=== PATIENT | female | born 1970 | race Hispanic/Latino ===

== ENCOUNTER 2019-11-28 23:23 | Emergency (ER) | payer BC ==
[2019-11-29] MEDS ORDERED: IBUPROFEN 400 MG TAB ONE (00:04)
[2019-11-29 00:40] VITALS: BP 132/85; TEMP 97.9; O2SAT 100
--- NOTE | 2019-11-29 11:16 | RAD REPORT ---
EXAM DESCRIPTION: Chest Single View CLINICAL HISTORY: PICC line insertion. COMPARISON: None. TECHNIQUE: AP Chest. FINDINGS: The cardiac size is mildly enlarged. There is pulmonary vascular congestion. There is left lower lobe consolidation with a small left pleural effusion. There is no edema or pneumothorax. Endotracheal tube is at the level of the clavicles. Feeding tube extends into the left abdomen. Right subclavian PICC line is visualized to the cavoatrial junction. Unremarkable soft tissues and bones. IMPRESSION: 1. Right subclavian PICC line placed without complication. 2. Cardiomegaly with pulmonary vascular congestion. Left lower lobe consolidation with a small left p leural effusion. Electronically signed by: Ana Paula Lomax DO 11/29/2019 1:33 AM CDT Due to temporary technical issues with the PACS/Fluency reporting system, reports are being signed by the in house radiologist as a courtesy to ensure prompt reporting. The interpreting radiologist is f ully responsible for the content of the report.
--- NOTE | 2019-12-04 13:58 | ER ---
Nurse's Notes [facility] Name: Lucy Smiley Age: 48 yrs Sex: Female : 1970 Arrival Date: 11/28/2019 Time: 23:24 Bed 6 Private MD: Diagnosis: Dawkins's palsy-left Presentation: 11/27 23:43 Chief complaint: Patient states: Reports she stated having a headache at 3 AM yesterday ea morning, pt reports on Wednesday her tongue felt scolded and was having muscle twitching. Denies weakness to extremities or slurred speech. Coronavirus screen: Proceed with normal triage. Ebola Screen: No symptoms or risks identified at this time. Initial Sepsis Screen: Does the patient meet any 2 criteria? No. Patient's initial sepsis screen is negative. Does the patient have a suspected source of infection? No. Patient's initial sepsis screen is negative. Risk Assessment: Do you want to hurt yourself or someone else? Patient reports no desire to harm self or others. Onset of symptoms was November 2019. 23:43 Method Of Arrival: Ambulatory ea 23:43 Acuity: GRACE 3 ea - Immunization history:: Adult Immunizations up to date. - Social history:: Patient/guardian denies using alcohol, street drugs, The patient lives alone, with family, Smoking status: Patient denies any tobacco usage or history of. - Family history:: not pertinent. Screenin:46 Abuse screen: Denies threats or abuse. Nutritional screening: No deficits noted. ea Tuberculosis screening: No symptoms or risk factors identified. Fall Risk None identified. Assessment: 23:47 General: Appears in no apparent distress. Behavior is appropriate for age. Pain: ea Complains of pain in top of head and forehead. Neuro: Level of Consciousness is awake, alert, obeys commands, Oriented to person, place, time, situation, Preschool Teacher Aide are equal bilaterally Moves all extremities. Gait is steady, Speech is normal, right side droop in mouth, right eye slow to blink. Intact. Respiratory: Airway is patent Respiratory effort is even, unlabored, Respiratory pattern is regular, symmetrical. Derm: Skin is pink, warm \T\ dry. 11/28 00:27 Reassessment: Patient and/or family updated on plan of care and expected duration. Pain ea level reassessed. Patient is alert, oriented x 3, equal unlabored respirations, skin warm/dry/pink. Discharge instruction given to patient, verbalized the understanding of instruction. Pt left ED ambulatory tolerating well. Vital Signs: 11/27 23:43 BP 132 / 85; Pulse 81; Resp 19; Temp 97.9; Pulse Ox 100% ; Weight 81.65 kg; Height 5 ea ft. 4 in. (162.56 cm); 23:43 Body Mass Index 30.90 (81.65 kg, 162.56 cm) ea ED Course: 23:24 Patient arrived in ED. cl3 23:30 Tyson Edwards, RN is Primary Nurse. rv 23:32 Teodoro Rod MD is Attending Physician. maSuzanne 23:46 Triage completed. ea 23:46 Patient has correct armband on for positive identification. Bed in low position. Call ea light in reach. Side rails up X 1. compliance monitor on. Pulse ox on. NIBP on. 23:46 Arm band placed on right wrist. Patient placed in an exam room, on a stretcher, on ea pulse oximetry. 11/28 00:20 CT Head Brain wo Cont In Process Unspecified. EDMS 00:28 No provider procedures requiring assistance completed. Patient did not have IV access ea during this emergency room visit. Administered Medications: 00:02 Drug: Ibuprofen 800 mg Route: PO; ea 00:28 Follow up: Response: No adverse reaction ea Outcome: 00:18 Discharge ordered by . maSuzanne 00:28 Discharged to home ambulatory. ea 00:28 Condition: stable 00:28 Discharge instructions given to patient, Instructed on discharge instructions, follow up and referral plans. medication usage, Demonstrated understanding of instructions, follow-up care, medications, Prescriptions given X 3. 00:28 Patient left the ED. ea Signatures: Dispatcher [employer] EDMS Judy Culver RN RN ea Alzahri, Mohammad, MD MD ma2 Vicente, Ronaldo, RN RN rv Lewis, Charde cl3
--- NOTE | 2019-12-04 13:58 | EDPHYS ---
Physician Documentation [facility] Name: Lucy Smiley Age: 48 yrs Sex: Female : 1970 Arrival Date: 11/28/2019 Time: 23:24 Bed 6 Private MD: ED Physician Teodoro Rod HPI: 11/27 23:51 This 48 yrs old Female presents to ER via Ambulatory with complaints of ma2 Numbness Of Face. 23:51 This 48 yrs old Female presents to ER via Ambulatory with complaints of ma2 Numbness Of Face. 23:51 The patient's problem is reported as a facial droop. Onset: The symptoms/episode ma2 began/occurred gradually, 1 day(s) ago. Associated signs and symptoms: Pertinent negatives: ataxia, chest pain, confusion, diarrhea, headache, lightheadedness. Severity of symptoms: At their worst the symptoms were very mild in the emergency department the symptoms are unchanged. The patient has not experienced similar symptoms in the past. - Immunization history:: Adult Immunizations up to date. - Social history:: Patient/guardian denies using alcohol, street drugs, The patient lives alone, with family, Smoking status: Patient denies any tobacco usage or history of. - Family history:: not pertinent. ROS: 23:51 Constitutional: Negative for fever, chills, and weight loss. ma2 23:51 All other systems are negative. Exam: 23:51 Constitutional: This is a well developed, well nourished patient who is awake, alert, ma2 and in no acute distress. Head/Face: left facial droop, including forehead, mild, otherwise Normocephalic, atraumatic. ENT: Nares patent. No nasal discharge, no septal abnormalities noted. Tympanic membranes are normal and external auditory canals are clear. Oropharynx with no redness, swelling, or masses, exudates, or evidence of obstruction, uvula midline. Mucous membranes moist. Neck: Trachea midline, no thyromegaly or masses palpated, and no cervical lymphadenopathy. Supple, full range of motion without nuchal rigidity, or vertebral point tenderness. No Meningismus. Chest/axilla: Normal chest wall appearance and motion. Nontender with no deformity. No lesions are appreciated. Cardiovascular: Regular rate and rhythm with a normal S1 and S2. No gallops, murmurs, or rubs. Normal PMI, no JVD. No pulse deficits. Respiratory: Lungs have equal breath sounds bilaterally, clear to auscultation and percussion. No rales, rhonchi or wheezes noted. No increased work of breathing, no retractions or nasal flaring. Abdomen/GI: Soft, non-tender, with normal bowel sounds. No distension or tympany. No guarding or rebound. No evidence of tenderness throughout. Back: No spinal tenderness. No costovertebral tenderness. Full range of motion. Skin: Warm, dry with normal turgor. Normal color with no rashes, no lesions, and no evidence of cellulitis. MS/ Extremity: Pulses equal, no cyanosis. Neurovascular intact. Full, normal range of motion. Neuro: Awake and alert, GCS 15, oriented to person, place, time, and situation. Cranial nerves II-XII grossly intact except 7th, she has left sided lmn facila palsy including forehead, Motor strength 5/5 in all extremities. Sensory grossly intact. Cerebellar exam normal. Normal gait. Vital Signs: 23:43 BP 132 / 85; Pulse 81; Resp 19; Temp 97.9; Pulse Ox 100% ; Weight 81.65 kg; Height 5 ea ft. 4 in. (162.56 cm); 23:43 Body Mass Index 30.90 (81.65 kg, 162.56 cm) ea MDM: 23:33 Patient medically screened. ma2 23:51 Differential diagnosis: TIA, paralysis, Alzheimer disease, Parkinson disease, metabolic ma2 disorder, drug effects. Data reviewed: vital signs, nurses notes. Counseling: I had a detailed discussion with the patient and/or guardian regarding: the historical points, exam findings, and any diagnostic results supporting the discharge/admit diagnosis, the presence of at least one elevated blood pressure reading (>120/80) during this emergency department visit. Response to treatment: the patient's symptoms have mildly improved after treatment. 11/27 23:49 Order name: CT Head Brain wo Cont ma2 Administered Medications: 11/28 00:02 Drug: Ibuprofen 800 mg Route: PO; ea 00:28 Follow up: Response: No adverse reaction ea Disposition: 11/29/19 00:18 Discharged to Home. Impression: Dawkins's palsy - left. - Condition is Stable. - Discharge Instructions: Dawkins Palsy, Adult. - Prescriptions for Neurontin 300 mg Oral Capsule - take 1 capsule by ORAL route At bedtime; 20 capsule. Acyclovir 400 mg Oral Tablet - take 1 tablet by ORAL route every 8 hours; 30 tablet. Medrol (Azael) 4 mg Oral Tablets, Dose Pack - take 1 tablet by ORAL route as directed - follow package instructions; 1 packet. - Medication Reconciliation Form, Thank You Letter, Antibiotic Education, Prescription Opioid Use form. - Follow up: Private Physician; When: Tomorrow; Reason: If symptoms return. Signatures: Dispatcher [employer] EDJudy Muñoz RN RN ea Alzahri, Mohammad, MD MD ma2 Corrections: (The following items were deleted from the chart) 00:28 00:18 11/29/2019 00:18 Discharged to Home. Impression: Dawkins's palsy - left. Condition ea is Stable. Discharge Instructions: Dawkins Palsy, Adult. Prescriptions for Neurontin 300 mg Oral Capsule - take 1 capsule by ORAL route At bedtime; 20 capsule, Acyclovir 400 mg Oral Tablet - take 1 tablet by ORAL route every 8 hours; 30 tablet, Medrol (Azael) 4 mg Oral Tablets, Dose Pack - take 1 tablet by ORAL route as directed - follow package instructions; 1 packet. and Forms are Medication Reconciliation Form, Thank You Letter, Antibiotic Education, Prescription Opioid Use. Follow up: Private Physician; When: Tomorrow; Reason: If symptoms return. ma2
== END 2019-11-29 00:28 | disposition home or self-care (01) ==
LOC: ER 23:23
DX: G51.0 Bell's palsy (principal)
CPT/HCPCS: 70450; 99284